=== PATIENT | male | born 1990 | race Caucasian/White ===

== ENCOUNTER 2018-03-14 00:43 | Inpatient (IN) | payer BC ==
[2018-03-14] MEDS ORDERED: Morphine 4 MG/ML VIAL ONE ×2 (01:20→03:42)
[2018-03-14] MEDS ORDERED: Ondansetron HCl/PF 4 MG/2 ML Vial ONE ×2 (01:21→03:53)
[2018-03-14 01:33] LABS: #Basophils 0.1 thou/uL (0.0-0.2); #Eosinphils 0.3 thou/uL (0.0-0.7); #Monocytes 0.6 thou/uL (0.11-0.59); #Neutrophils 4.4 thou/uL (1.40-6.50); %Basophils 1.1 % (0.0-1.0); %Eosinophils 3.7 % (0.0-10.0); %Lymphocytes 27.1 % (21.0-51.0); %Monocytes 8.2 % (0.0-10.0); Mean Corpuscular HGB CONC 35.2 g/dL (32.0-36.0); Mean Corpuscular Hemoglobin 30.1 pg (27.0-31.0); Mean Corpuscular Volume 85.3 fL (78.0-98.0); Mean Platelet Volume 7.3 fL (7.4-10.4); Platelet Count 290 thou/uL (130-400); RBC Distribution Width 10.5 % (11.5-14.5); White Blood Cell (WBC) Count 7.4 thou/uL (4.8-10.8)
[2018-03-14 01:44] LABS: ALT (SGPT) 31 U/L (8-55); AST (SGOT) 25 U/L (5-34); Albumin 4.5 g/dL (3.5-5.0); Alkaline Phosphatase 44 U/L (40-150); Anion Gap 14 mmol/L (10-20); BUN (Urea Nitrogen) 20 mg/dL (8.9-20.6); Bilirubin, Total 0.4 mg/dL (0.2-1.2); Calc. Creatinine Clearance 0 mL/min (70-130); Calcium 9.7 mg/dL (7.8-10.44); Carbon Dioxide 24 mmol/L (22-29); Chloride 107 mmol/L (98-107); Estimated GFR-MDRD 69; Globulin 2.7 g/dL (2.4-3.5); Glucose 105 mg/dL (70-105); Lipase 14 U/L (8-78); Potassium 3.8 mmol/L (3.5-5.1); Protein, Total 7.2 g/dL (6.0-8.3); Sodium 141 mmol/L (136-145)
[2018-03-14] MEDS ORDERED: Lidocaine Viscous Sol 2% 15 ml UD Cup ONE (03:42)
[2018-03-14] MEDS ORDERED: Ondansetron HCl/PF 4 MG/2 ML Vial IVP PRN ×2 (05:05→08:06)
[2018-03-14] MEDS ORDERED: Morphine 4 MG/ML VIAL IV PRN (05:06)
[2018-03-14 05:12] VITALS: BMI 28.7
[2018-03-14] MEDS: Dextrose 5 %-0.45 % NaCl 1,000 ML IV SCH ×2 (06:05→15:13)
[2018-03-14] MEDS ORDERED: Acetaminophen 1,000 MG in Premix Bag 1 BAG IVPB PRN (08:05)
[2018-03-14] MEDS ORDERED: Morphine 4 MG/ML Carpuject IVP PRN (08:05)
[2018-03-14] MEDS: Morphine 4 MG/ML VIAL IV PRN ×2 (08:34→22:59)
--- NOTE | 2018-03-14 08:43 | CT ---
PRELIMINARY REPORT/[facility]/EMERGENCY AFTER HOURS PROCEDURE: EXAM: CT Abdomen and Pelvis With Intravenous Contrast EXAM DATE/TIME: 03/14/2018 1:31 AM CLINICAL HISTORY: 27 years old, male; Pain; Abdominal pain; Epigastric; Prior surgery; Surgery date: 6+ months; Surgery type: Lap bowel decompression 2013; Patient HX: Epigastric and middle abd pain, distention. Hs of mu ltiple obstructions since , seven surgeries but no bowel removed TECHNIQUE: Axial computed tomography images of the abdomen and pelvis with intravenous contrast. All CT scans at this facility use at least one of these dose optimization techniques: automated exposure control; mA and/or kV adjustment per patient size (includes targeted exams where dose is matched to clinical indication); or iterative reconstruction. Coronal reformatted images were created and reviewed. CONTRAST: 90 ml of [id number] administered intravenously. COMPARISON: No relevant prior studies available. FINDINGS: Lower thorax: The visualized portions of the lung bases are normal. ABDOMEN: Liver: Normal. No mass. Gallbladder and bile ducts: The gallbladder is normal. There is no evidence of biliary ductal dilatio n. Pancreas: The pancreas appears normal. Spleen: The spleen is normal. Adrenals: The adrenal glands are normal. Kidneys and ureters: The kidneys appear normal. Stomach and bowel: The stomach is normal. The duodenum is unremarkable. There is dilatation of the sm all bowel up to 4.7 cm with abrupt collapse in the RIGHT upper quadrant consistent with small bowel o bstruction. Appendix: No appendix is specifically identified. No associated signs to suggest acute appendicitis. PELVIS: Bladder: The bladder is normal. Reproductive: The prostate gland and seminal vesicles are normal. ABDOMEN and PELVIS: Intraperitoneal space: Normal. No free air. No significant fluid collection. Bones/joints: No acute fracture. No dislocation. Soft tissues: Unremarkable. Vasculature: Normal. No abdominal aortic aneurysm. Lymph nodes: Normal. No enlarged lymph nodes. IMPRESSION: There is dilatation of the small bowel up to 4.7 cm with abrupt collapse in the RIGHT upper quadrant consistent with small bowel obstruction. Thank you for allowing us to participate in the care of your patient. Dictated and Authenticated by: Bam Gillis MD 03/14/2018 3:24 AM Central Time ([place] & [place]) FINAL REPORT EMERGENT AFTER HOURS CT ABDOMEN AND PELVIS DATE: 03/14/18. HISTORY: Gastric abdominal pain. History of prior surgery for bowel decompression in 2013. Epigastric and mi ddle abdominal pain as well as abdominal distention. History of multiple bowel obstructions. COMPARISON: 01/31/17. IMPRESSION: 1. Partial small bowel obstruction with loops of small bowel measuring up to 4.8 cm. There is f eculent-type material within the small bowel just proximal to the area of transition in the right low er quadrant which could be related to phytobezoar. 2. No other findings are seen in the abdomen or pelvis. 3. Findings are in agreement with the preliminary report by [facility]. POS: [facility]
--- NOTE | 2018-03-14 10:57 | HP ---
DATE OF ADMISSION: 03/14/2018 CHIEF COMPLAINT: Nausea, vomiting and abdominal pain. 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 His last admission was 2-1/2 years ago and he was treated nonoperati vely. He was doing well until yesterday afternoon when he started having some nausea, vomiting and a bdominal pain similar to previous obstructions. At midnight, he went to the emergency room. He says he had a bowel movement at 8:30, he passed flatus at 9:00 p.m. last night. PAST MEDICAL HISTORY: Otherwise, healthy. PAST SURGICAL HISTORY: Multiple small bowel resections, exploratory laparotomies and stricturoplasty . MEDICATIONS: He is on no medications. ALLERGIES: No known drug allergies. He is allergic to GRASS. SOCIAL HISTORY: He is a graduate of [employer]. He does not use tobacco or alcohol. FAMILY HISTORY: He is adopted. PHYSICAL EXAMINATION: VITAL SIGNS: Temperature 97.7, pulse 80, blood pressure 123/61. ABDOMEN: He has a hypertrophic midline scar. There are no palpable hernias. He is distended. No s ignificant tenderness. EXTREMITIES: Unremarkable. LABORATORY DATA: White count 7.4, H and H 15 and 42, platelet count 290,000. Electrolytes are fine. IMAGING: CT scan shows a very distended stomach with vegetable matter as well as the duodenum with a cut off zone in the right upper quadrant. ASSESSMENT: Bezoar. I confirmed that with the radiologist. PLAN: Continue NG suction. We will consult GI.
[2018-03-14] MEDS ORDERED: Iopamidol 370 76% 100 ML VIAL ONE (14:16)
--- NOTE | 2018-03-14 15:05 | CON ---
DATE OF CONSULTATION: 03/14/2018 REQUESTING PHYSICIAN: Dr. Serrano. REASON FOR CONSULTATION: Partial small-bowel obstruction, bezoar in the stomach and duodenum. HISTORY OF PRESENT ILLNESS: Siva Sierra is a 27-year-old man who has been seen in the past by my [facility] colleague, Dr. West Beltran. He has a complicated history of multiple episodes of small-bowel obstru ction dating back to infancy. He has his first surgery at the age of 3 with Jae's bands released at that time, but then throughout life since then has been dealing with intra-abdominal adhesive diseas e. Primarily recurrent bowel obstructions have been in the distal small bowel. At one point, he had a strictureplasty and a small segmental distal small bowel resection. He had multiple exploratory l aparotomies. He had been doing okay for several months, but yesterday he started having acute upper abdominal pain associated with nausea and vomiting. His last bowel movement was last night and was n ormal, but he has not had any bowel movement since that time. The pain and the nausea became severe and he presented to the hospital. A CT scan of the abdomen and pelvis demonstrates distended stomach and duodenum with a food bezoar essentially filling up the stomach and most of the duodenum, in fron t of partial bowel obstruction. The patient had a nasogastric tube placed, which has put out 100 mL of fluid and he has vomited 3 times today. He continues to feel nauseated and have abdominal pain. He is receiving morphine and requesting Dilaudid. PAST MEDICAL HISTORY: Otherwise, healthy. PAST SURGICAL HISTORY: Multiple small bowel resections, exploratory laparotomies and stricturoplasty . MEDICATIONS: None. ALLERGIES: No known drug allergies. SOCIAL HISTORY: No tobacco or alcohol use. FAMILY HISTORY: He is adopted. PHYSICAL EXAMINATION: VITAL SIGNS: Temperature 97.8, pulse 70, blood pressure 130/73, 98% oxygen saturation on room air. GENERAL: A 27-year-old man sitting up in bed in mild to moderate discomfort from nausea, b ut no acute distress. SKIN: No jaundice, no rashes were palpable. EYES: No scleral icterus. Extraocular movements intact. ENT: Mucous membranes moist. He has a nasogastric tube suctioning out a small amount of thick fluid . HEART: Regular rate and rhythm. LUNGS: Clear to auscultation bilaterally. ABDOMEN: Mild distention, tympanitic. Bowel sounds are hypoactive, but present. Generalized tender ness to palpation, but no guarding, rebound tenderness. EXTREMITIES: No peripheral edema. VESSELS: Radial pulses 2+ bilaterally. NEUROLOGICAL: Cranial nerves II-XII intact bilaterally. No focal deficits. LABORATORY STUDIES: WBC 7.4, hemoglobin 15.0, platelets 290. Sodium 141, potassium 3.8, BUN 20, cre atinine 1.24, lactic acid 0.6. Total bilirubin 0.4, alkaline phosphatase 44, AST 25, ALT 31, lipase 14, albumin 4.5. ASSESSMENT AND PLAN: 1. Proximal partial small-bowel obstruction, recurrent. 2. Bezoar, filling the stomach and most of the duodenum, based on CT scan from earlier today. I had a long discussion with the patient and his mother as well as his father on the speaker phone. Unfortunately, it is not really feasible to attempt endoscopic removal of bezoar at this size, which appears to be essentially filling up the entire stomach and most of the duodenum. Rather, I am hopef ul that this obstructive process will resolve as happened previously and that all of this food materi al will be able to move distally appropriately. I cannot really predict how fast this might occur. If not, then a surgical approach would be required. Normally, I would recommend treating with IV Reg alexandru to try to stimulate bowel motility and move this bezoar along, but in his case with prior episode s of real mechanical small-bowel obstruction, this would be a bit higher risk. But I would recommend conservative expectant management rather than anything aggressive at this time. We will not plan fo r any endoscopy. Consider repeat imaging on a daily basis if symptoms persist. Thank you for the consultation. Please call with questions or concerns.
[2018-03-14] MEDS: Acetaminophen 1,000 MG in Premix Bag 1 BAG IVPB SCH ×2 (15:12→20:33)
[2018-03-14] MEDS ORDERED: Acetaminophen 1,000 MG in Premix Bag 1 BAG IVPB SCH (18:00)
[2018-03-14] MEDS ORDERED: Ketorolac Tromethamine 30 MG/ML VIAL IVP SCH (18:00)
[2018-03-14] MEDS: D5 1/2 NS w/20 mEq KCL 1,000 ML IV SCH (18:07)
[2018-03-14] MEDS: Ketorolac Tromethamine 30 MG/ML VIAL IVP SCH (21:40)
[2018-03-14] MEDS: Ondansetron HCl/PF 4 MG/2 ML Vial SLOW IVP PRN (23:04)
[2018-03-15] MEDS: Ketorolac Tromethamine 30 MG/ML VIAL IVP SCH ×2 (02:13→10:33)
[2018-03-15] MEDS: Acetaminophen 1,000 MG in Premix Bag 1 BAG IVPB SCH ×3 (02:13→14:37)
[2018-03-15] MEDS: D5 1/2 NS w/20 mEq KCL 1,000 ML IV SCH ×3 (02:14→17:46)
[2018-03-15 07:06] LABS: #Eosinphils 0.3 thou/uL (0.0-0.7); #Lymphocytes 1.1 thou/uL (1.20-3.40); #Monocytes 0.7 thou/uL (0.11-0.59); #Neutrophils 4.2 thou/uL (1.40-6.50); %Basophils 0.2 % (0.0-1.0); %Eosinophils 4.1 % (0.0-10.0); %Lymphocytes 17.6 % (21.0-51.0); %Monocytes 10.6 % (0.0-10.0); %Neutrophils 67.5 % (42.0-75.0); Hemoglobin 13.4 g/dL (14.0-18.0); Mean Corpuscular HGB CONC 34.6 g/dL (32.0-36.0); Mean Corpuscular Hemoglobin 31.7 pg (27.0-31.0); Mean Corpuscular Volume 91.4 fL (78.0-98.0); Mean Platelet Volume 7.2 fL (7.4-10.4); Platelet Count 239 thou/uL (130-400); RBC Distribution Width 11.8 % (11.5-14.5); Red Blood Cell (RBC) Count 4.22 mill/uL (4.70-6.10); White Blood Cell (WBC) Count 6.2 thou/uL (4.8-10.8)
[2018-03-15 07:18] LABS: Anion Gap 8 mmol/L (10-20); BUN (Urea Nitrogen) 11 mg/dL (8.9-20.6); Calc. Creatinine Clearance 114 mL/min (70-130); Calcium 8.3 mg/dL (7.8-10.44); Carbon Dioxide 29 mmol/L (22-29); Chloride 106 mmol/L (98-107); Estimated GFR-MDRD 80; Glucose 102 mg/dL (70-105); Potassium 3.8 mmol/L (3.5-5.1); Sodium 139 mmol/L (136-145)
--- NOTE | 2018-03-15 07:44 | RAD ---
ABDOMINAL RADIOGRAPH: Date: 03/15/18 PROVIDED CLINICAL HISTORY: Small bowel obstruction. FINDINGS: The abdominal bowel gas pattern is nonspecific. Enteric catheter overlies the left upper quadrant. Th e supine nature of the examination is not sensitive for the detection of pneumoperitoneum. No suspici ous calcifications. IMPRESSION: Nonspecific bowel gas pattern. POS: [facility]
[2018-03-15] MEDS ORDERED: Ketorolac Tromethamine 30 MG/ML VIAL IVP PRN (09:53)
[2018-03-15] MEDS: Ondansetron HCl/PF 4 MG/2 ML Vial SLOW IVP PRN (10:19)
--- NOTE | 2018-03-15 10:35 | PRG ---
DATE OF SERVICE: 03/15/2018 SUBJECTIVE: Mr. Sierra does feel better today. He is less bloated. NG output is down. OBJECTIVE: VITAL SIGNS: He is afebrile. Vital signs are stable. gastric drainage overnight. ABDOMEN: Soft, it is minimally distended, very little tenderness. Decreased bowel sounds throughout . Well-healed incision without hernia. LABORATORY DATA: White cell count is 6, hemoglobin 13, creatinine 1.1. Sodium 139, potassium is 3.8 . ASSESSMENT: Small-bowel obstruction, question secondary to phytobezoar. PLAN: Gastrografin small bowel follow through today. The family notes that in previous hospitalizat ions, he has required minimal oil as an adjunct to that. We will attempt without first, but use it i f we need to. Hopeful that his phytobezoar can be flushed through with Gastrografin.
--- NOTE | 2018-03-15 12:21 | RAD ---
GASTROGRAFIN SMALL BOWEL FOLLOW THROUGH: Date: 03/15/18 PROVIDED CLINICAL HISTORY: Small bowel obstruction. FINDINGS: Biological Technical Officer radiograph demonstrates a nonspecific bowel gas pattern. Subsequent to the administration of or al contrast material, there is rapid transit of contrast material from the stomach, with opacificatio n of the colon by the 30 minute image. There is no jose cruz small bowel dilatation apparent. IMPRESSION: No evidence for small bowel obstruction. POS: [facility]
--- NOTE | 2018-03-15 13:14 | PRG ---
DATE OF SERVICE: 03/15/2018 SUBJECTIVE: Mr. Sierra is feeling a lot better this morning. He had no further vomiting after yest erday. He continued to pass some gas. He woke up this morning with no nausea or abdominal pain. He did have a small bowel follow through earlier today. The report just came back. The small bowel fo llow through was essentially normal. There is no evidence of obstruction. No clear evidence of any residual food matter. OBJECTIVE: VITAL SIGNS: Temperature 98.0, pulse 69, blood pressure 123/77, 96% oxygen saturation on room air. GENERAL: No acute distress. Nasogastric tube remains in place, clamped. HEART: Regular rate and rhythm. LUNGS: Clear to auscultation bilaterally. ABDOMEN: The patient does have bowel sounds in all 4 quadrants, a bit hypoactive, but present. Soft and nontender to palpation. EXTREMITIES: No peripheral edema. LABORATORY STUDIES: WBC 6.2, hemoglobin 13.4, platelets 239. Sodium 139, potassium 3.8, BUN 11, cre atinine 1.10. Calcium 8.3. IMAGING STUDIES: Small bowel follow through from earlier today demonstrated nonspecific bowel gas pa ttern. There is rapid transit of contrast material from the stomach with opacification of the colon by the 30-minute image. There is no jose cruz small bowel dilation apparent on my review of the images, I do not see any filling defect suggestive of retained food material. ASSESSMENT AND PLAN: 1. Small-bowel obstruction, appears to have resolved. 2. Bezoar, appears to have passed. The patient is doing a lot better and this is consistent with all bowel follow through findings from today. I think his diet could be started. We would start wit h clear liquids and advance as tolerated. Hopefully, if he is tolerating food, he will be able to be discharged from the hospital in the near future. I discussed with Dr. Kimble as well. Going forwa rd, I think the patient would benefit from a generally adhering to a low residue diet. Otherwise, no other GI recommendations at this time. GI will sign off, but please call back anytime with questions or concerns.
[2018-03-15] MEDS ORDERED: MD-Gastroview 120 ML BOT ONE (14:39)
[2018-03-16] MEDS: D5 1/2 NS w/20 mEq KCL 1,000 ML IV SCH ×3 (03:44→15:11)
--- NOTE | 2018-03-16 09:19 | PDOC.GSPN ---
Surgery Progress Note: Subj - Subjective Patient reports: bowel movement, flatus, tolerating a regular diet Surgery Progress Note: Obj - Vital signs Vital signs: Vital Signs - Most Recent Temp Pulse Resp BP Pulse Ox 98.0 F 68 16 123/72 97 03/16/18 06:57 03/16/18 06:57 03/16/18 06:57 03/16/18 06:57 03/16/18 06:57 - Physical Exam General: no distress Cardiovascular: regular rate and rhythm Respiratory: clear to auscultation Abdomen: soft, non tender, nondistended, positive bowel sounds Surgery Progress Note: Results - Labs Result Diagrams: 03/15/18 06:48 03/15/18 06:48 Surgery Progress Note: A/P - Problem (1) Small bowel obstruction Current Visit: Yes Code(s): K56.609 - UNSP INTESTNL OBST, UNSP TO PARTIAL VERSUS COMPLETE OBST Status: Acute - Plan Plan: Resolved -SBFT normal -advance diet today -likely home tomorrow
[2018-03-17] MEDS: D5 1/2 NS w/20 mEq KCL 1,000 ML IV SCH ×2 (02:23→08:56)
--- NOTE | 2018-03-17 07:16 | DIS ---
DATE OF ADMISSION: 03/14/2018 DATE OF DISCHARGE: 03/17/2018 DISCHARGE DIAGNOSIS: Gastroduodenal bezoar with obstruction. PROCEDURES DURING ADMISSION: Small bowel follow through with Gastrografin. HOSPITAL COURSE: The patient was admitted, given IV fluids, NG tube was placed. Minimal came out th e NG tube. He started passing flatus. He did vomit some of this vegetable material. A small bowel follow through with Gastrografin was performed showed a complete resolution and no further vegetable matter within the stomach or duodenum. He has been passing multiple bowel movements. He feels good. He is tolerating a regular diet. He is discharged home on a low residue diet. He will follow up w [facility] dietitian for further recommendations.
[2018-03-17 07:42] VITALS: BP 121/76; TEMP 97.8
== END 2018-03-17 10:06 | disposition home or self-care (01) | DRG 394 ==
LOC: SCSER 00:43 → SURG A 03:30
PROVIDERS: ADMIT Surgery; ATTEND Surgery
DX: T18.3XXA Foreign body in small intestine, initial encounter (principal); K56.609 Unspecified intestinal obstruction, unspecified as to partial versus complete obstruction; Z88.8 Allergy status to other drugs, medicaments and biological substances
CPT/HCPCS: 36415; 74018; 74177; 74250; 80048; 80053; 83605; 83690; 85025; 96361; 96374; 96375; 96376; A4216; J0131; J1885; J2270; J2405